=== PATIENT | male | born 1995 | race Caucasian/White ===

== ENCOUNTER 2017-05-03 21:37 | Inpatient (IN) | payer BC, OTHER ==
[2017-05-03 22:38] LABS: URINE APPEARANCE CLEAR; URINE BILIRUBIN NEGATIVE (NEGATIVE); URINE BLOOD 1+ (NEGATIVE); URINE COLOR COLORLESS; URINE GLUCOSE (UA) NEGATIVE (NEGATIVE); URINE KETONE NEGATIVE (NEGATIVE); URINE LEUK ESTERASE NEGATIVE (NEGATIVE); URINE NITRITE NEGATIVE (NEGATIVE); URINE PROTEIN NEGATIVE (NEGATIVE); URINE UROBILINOGEN NEGATIVE mg/dL (0.2-1.0)
[2017-05-03 22:41] LABS: BASO % 0.8 % (0-2.0); EOS % 0.2 % (0-4.5); HEMATOCRIT 47.4 % (35.4-49); HEMOGLOBIN 15.9 GM/dL (11.7-16.9); LYMPH % 19.4 % (8-40); MCH 27.6 pg (25.7-33.7); MCHC 33.6 g/dl (32.0-35.9); MEAN CELL VOLUME 82.1 fl (80-96); MEAN PLT VOLUME 7.6 fl (7.5-11.1); MONO % 7.5 % (3.8-10.2); NEUT % 72.1 % (42.8-82.8); PLATELET COUNT 306 K/MM3 (134-434); RBC 5.77 M/mm3 (4.00-5.60)
--- NOTE | 2017-05-03 22:58 | PDOC ---
History of Present Illness - General History Source: Patient, Family Exam Limitations: No Limitations <Joey Ospina - Last Filed: 05/04/17 00:28> - General History Source: Patient, Family Exam Limitations: No Limitations - History of Present Illness Initial Comments: 05/03/17 23:29 The patient is a 22 year old male, accompanied by family with a significant past medical history of PTSD, who presents to the emergency department with, confusion for approx. 5 days. The patient reports he hit himself in the head with a 25 lb dumbbell intentionally five days ago. The patient reports increased stressors and states he hit his head on purpose. He denies suicidal or homicidal ideation. The patient's family reports the patient has been behaving less attentive than usual and acting lethargic over the past week s/p dumbbell incident. He denies any recent fevers, chills, or dizziness. He denies any recent nausea, vomit, diarrhea or constipation. He denies any recent chest pain or shortness of breath. Allergies: NKA Past surgical history: None reported. Social History: Nonsmoker. Denies EtOH use and recreational drug use. Primary Care Physician: Dr. Tay Davis <Yossi Dodson - Last Filed: 05/04/17 00:32> - General Chief Complaint: Altered Mental Status Stated Complaint: ALTERED MENTAL STATUS Time Seen by Provider: 05/03/17 21:44 Past History - Past Medical History COPD: No - Suicide/Smoking/Psychosocial Hx Smoking History: Never smoked Have you smoked in the past 12 months: No Information on smoking cessation initiated: No Hx Alcohol Use: No Drug/Substance Use Hx: No Substance Use Type: None <Joey Ospina - Last Filed: 05/04/17 00:28> <Yossi Dodson - Last Filed: 05/04/17 00:32> - Past Medical History Allergies/Adverse Reactions: Allergies Allergy/AdvReac Type Severity Reaction Status Date / Time No Known Allergies Allergy Verified 05/03/17 22:29 Home Medications: Ambulatory Orders NK [No Known Home Medication] 05/03/17 Review of Systems - Review of Systems Comments:: 05/03/17 23:31 GENERAL/CONSTITUTIONAL: No fever or chills. No weakness. HEAD, EYES, EARS, NOSE AND THROAT: No change in vision. No ear pain or discharge. No sore throat. CARDIOVASCULAR: No chest pain or shortness of breath. RESPIRATORY: No cough, wheezing, or hemoptysis. GASTROINTESTINAL: No nausea, vomiting, diarrhea or constipation. GENITOURINARY: No dysuria, frequency, or change in urination. MUSCULOSKELETAL: No joint or muscle swelling or pain. No neck or back pain. SKIN: No rash NEUROLOGIC: No headache, vertigo, loss of consciousness, or change in strength/ sensation. ENDOCRINE: No increased thirst. No abnormal weight change. HEMATOLOGIC/LYMPHATIC: No anemia, easy bleeding, or history of blood clots. ALLERGIC/IMMUNOLOGIC: No hives or skin allergy. <Yossi Dodson - Last Filed: 05/04/17 00:32> *Physical Exam - Vital Signs Last Vital Signs Temp Pulse Resp BP Pulse Ox 98.7 F 101 H 21 126/75 99 05/03/17 22:30 05/03/17 22:30 05/03/17 22:30 05/03/17 22:30 05/03/17 22:30 <Joey Ospina - Last Filed: 05/04/17 00:28> - Vital Signs Last Vital Signs Temp Pulse Resp BP Pulse Ox 98.7 F 101 H 21 126/75 99 05/03/17 22:30 05/03/17 22:30 05/03/17 22:30 05/03/17 22:30 05/03/17 22:30 - Physical Exam Comments: 05/03/17 23:46 GENERAL: +Appears slow to answer questions. Alert and orientated x 3. HEAD: No signs of trauma EYES: PERRLA, EOMI, sclera anicteric, conjunctiva clear ENT: Auricles normal inspection, hearing grossly normal, nares patent, oropharynx clear without exudates. Moist mucosa NECK: Normal ROM, supple, no lymphadenopathy, JVD, or masses LUNGS: Breath sounds equal, clear to auscultation bilaterally. No wheezes, and no crackles HEART: Regular rate and rhythm, normal S1 and S2, no murmurs, rubs or gallops ABDOMEN: Soft, nontender, normoactive bowel sounds. No guarding, no rebound. No masses EXTREMITIES: Normal range of motion, no edema. No clubbing or cyanosis. No cords, erythema, or tenderness NEUROLOGICAL: Cranial nerves II through XII grossly intact. Normal speech, normal gait SKIN: Warm, Dry, normal turgor, no rashes or lesions noted. <Yossi Dodson - Last Filed: 05/04/17 00:32> Heart Score/ECG Review #1 ECG reviewed & interpreted by me at: 22:30 05/03/17 22:58 NSR 101, low voltage QRS, Q wave III, no std/martine, QTC 433 msec <Joey Ospina - Last Filed: 05/04/17 00:28> ED Treatment Course - LABORATORY CBC & Chemistry Diagram: 05/03/17 22:25 05/03/17 22:25 - ADDITIONAL ORDERS Additional order review: Laboratory Results 05/03/17 22:25 Urine Color Colorless Urine Appearance Clear Urine pH 7.0 Ur Specific [place] 1.004 Urine Protein Negative Urine Glucose (UA) Negative Urine Ketones Negative Urine Blood 1+ H Urine Nitrite Negative Urine Bilirubin Negative Urine Urobilinogen Negative Ur Leukocyte Esterase Negative Urine WBC (Auto) <1 Urine RBC (Auto) <1 05/03/17 22:25 RBC 5.77 H MCV 82.1 MCHC 33.6 RDW 13.0 MPV 7.6 Neutrophils % 72.1 Lymphocytes % 19.4 D Monocytes % 7.5 Eosinophils % 0.2 Basophils % 0.8 - RADIOLOGY Radiology Studies Ordered: Category Date Time Status HEAD CT WITHOUT CONTRAST [CT] Stat CT Scan 05/03/17 21:57 Ordered <Joey Ospina - Last Filed: 05/04/17 00:28> - LABORATORY CBC & Chemistry Diagram: 05/03/17 22:25 05/03/17 22:25 - ADDITIONAL ORDERS Additional order review: Laboratory Results 05/03/17 05/03/17 05/03/17 22:25 22:25 22:25 PT with INR 12.40 H INR 1.10 PTT (Actin FS) 31.6 Urine Color Colorless Urine Appearance Clear Urine pH 7.0 Ur Specific [place] 1.004 Urine Protein Negative Urine Glucose (UA) Negative Urine Ketones Negative Urine Blood 1+ H Urine Nitrite Negative Urine Bilirubin Negative Urine Urobilinogen Negative Ur Leukocyte Esterase Negative Urine WBC (Auto) <1 Urine RBC (Auto) <1 Opiates Screen Negative Methadone Screen Negative Barbiturate Screen Negative Phencyclidine Screen Negative Ur Amphetamines Screen Negative MDMA (Ecstasy) Screen Negative Benzodiazepines Screen Negative Cocaine Screen Negative U Marijuana (THC) Screen Negative 05/03/17 22:25 RBC 5.77 H MCV 82.1 MCHC 33.6 RDW 13.0 MPV 7.6 Neutrophils % 72.1 Lymphocytes % 19.4 D Monocytes % 7.5 Eosinophils % 0.2 Basophils % 0.8 - RADIOLOGY Radiograph Interpretation: 05/03/17 23:51 EXAM#: TYPE/EXAM: RESULT: [id number] CT/HEAD CT WITHOUT CONTRAST Exam: CT head without contrast. Indication: Head injury. Technique: Axial noncontrast head CT with coronal and sagittal reformations. Comparison: None available. Findings: There is no acute intracranial hemorrhage or focal extra-axial collection. There is no compelling evidence of acute transcortical infarction. The ventricles, sulci and cisterns are appropriate in size for age. There is no mass effect, midline shift or hydrocephalus. The calvarium is intact. The visualized paranasal sinuses and mastoid air cells are clear. Impression: No acute intracranial hemorrhage or calvarial fracture. No mass effects or hydrocephalus. Reported By: Callum Marcus DO <Yossi Dodson - Last Filed: 05/04/17 00:32> Medical Decision Making - Medical Decision Making 05/03/17 22:54 A portion of this note was documented by scribe services under my direction. I have reviewed the details of the note, within reason, and agree with the documentation with the following case summary and management plan written by me. Patient treated in the ED. Nursing notes are reviewed and incorporated into the medical decision-making. Vital signs reviewed. Peripheral IV access obtained by the nurse, laboratory studies are drawn and sent, reviewed and interpreted by myself. Vital Signs Temp Pulse Resp BP Pulse Ox 98.7 F 101 H 21 126/75 99 05/03/17 22:30 05/03/17 22:30 05/03/17 22:30 05/03/17 22:30 05/03/17 22:30 22-year-old male patient with past medical history of PTSD brought in by family presents with "fogginess". 5 days ago, the patient reported that he had hit his head with a 25 pound well on purpose. The patient reports he's been undergoing stress and had purposely done this. However, he denies suicidal or homicidal ideation. The patient is not currently on antidepressants and does not see a psychologist. Since then, the family noted that the patient has been increasingly "spaced out" and "foggy". He had the patient has been much more lethargic and not like himself. I suspect the patient likely has concussion. However, we'll need to rule out intracranial hemorrhage. We'll obtain a head CT. There is no evidence of lacerations on the patient's scalp. The patient likely has a moderate severity of concussion. We'll send a urine toxicological screen about other causes for patient's condition. At this time, patient is not acutely suicidal but would likely benefit from a psychiatric consultation. We'll obtain labs and ultimately admit the patient to the hospital for evaluation by neurology and psychiatry. 05/04/17 00:28 CBC, BMP 05/03/17 22:25 05/03/17 22:25 CMP Sodium 139 mmol/L (136-145) 05/03/17 22:25 Potassium 3.8 mmol/L (3.5-5.1) 05/03/17 22:25 Chloride 101 mmol/L (98-107) 05/03/17 22:25 Carbon Dioxide 28 mmol/L (21-32) 05/03/17 22:25 Anion Gap 10 (8-16) 05/03/17 22:25 BUN 9 mg/dL (7-18) 05/03/17 22:25 Creatinine 0.9 mg/dL (0.7-1.3) 05/03/17 22:25 Creat Clearance w eGFR > 60 (>60) 05/03/17 22:25 Random Glucose 111 mg/dL (74-106) H 05/03/17 22:25 Calcium 9.2 mg/dL (8.5-10.1) 05/03/17 22:25 Total Bilirubin 0.4 mg/dL (0.2-1.0) 05/03/17 22:25 AST 18 U/L (15-37) 05/03/17 22:25 ALT 21 U/L (12-78) 05/03/17 22:25 Alkaline Phosphatase 75 U/L (45-117) 05/03/17 22:25 Total Protein 7.4 g/dl (6.4-8.2) 05/03/17 22:25 Albumin 4.1 g/dl (3.4-5.0) 05/03/17 22:25 Urine Test Results Urine Color Colorless 05/03/17: Urine Appearance Clear 05/03/17: Urine pH 7.0 (5.0-8.0) 05/03/17 22:25 Ur Specific [place] 1.004 (1.001-1.035) 05/03/17 22:25 Urine Protein Negative (NEGATIVE) 05/03/17:25 Urine Glucose (UA) Negative (NEGATIVE) 05/03/17: Urine Ketones Negative (NEGATIVE) 05/03/17 22: Urine Blood 1+ (NEGATIVE) H 05/03/17: Urine Nitrite Negative (NEGATIVE) 05/03/17: Urine Bilirubin Negative (NEGATIVE) 05/03/17: Ur Leukocyte Esterase Negative (NEGATIVE) 05/03/17: Utox negative. Head CT negative. Case discussed with Dr. Davis's POPPY Fuentes who accepts the patient to med/surg observation under the behalf of DR. Davis. Case discussed in detail with admitting physician including history, physical exam and ancillary studies. Admitting physician has assumed care for the patient, will follow all pending diagnostics and will complete the evaluation and treatment. <Joey Ospina - Last Filed: 05/04/17 00:28> *DC/Admit/Observation/Transfer - Discharge Dispostion Admit: Yes <Joey Ospina - Last Filed: 05/04/17 00:28> - Attestations Scribe Attestion: 05/03/17 23:32 Documentation prepared by Yossi Dodson, acting as medical biller coder for Joey Ospina MD. <Yossi Dodson - Last Filed: 05/04/17 00:32> Diagnosis at time of Disposition: Concussion Qualifiers: Encounter type: initial encounter Loss of consciousness presence/duration: without LOC Qualified Code(s): S06.0X0A - Concussion without loss of consciousness, initial encounter - Discharge Dispostion Condition at time of disposition: Stable - Referrals Referrals: Tay Davis MD [Primary Care Provider] - - Patient Instructions - Post Discharge Activity
[2017-05-03 22:59] LABS: COCAINE, UR NEGATIVE ng/ml (CUTOFF=300); METHADONE, UR NEGATIVE ng/ml (CUTOFF=300); OPIATES, URI NEGATIVE ng/ml (CUTOFF=300); PHENCYCLIDINE,URINE NEGATIVE ng/ml (CUTOFF=25); URINE AMPHETAMINES NEGATIVE ng/ml (CUTOFF=500); URINE BARBITURATES NEGATIVE ng/ml (CUTOFF=200); URINE BENZODIAZEPINES NEGATIVE ng/ml (CUTOFF=200)
[2017-05-03 23:18] LABS: INR 1.1 (0.82-1.09); PROTHROMBIN TIME (PATIENT) 12.4 SEC (9.98-11.88)
[2017-05-03 23:21] LABS: ACTIVATED PTT 31.6 SECONDS (26.9-34.4)
[2017-05-03 23:36] LABS: ALBUMIN 4.1 g/dl (3.4-5.0); ANION GAP 10 (8-16); BLOOD UREA NITROGEN 9 mg/dL (7-18); CALCIUM 9.2 mg/dL (8.5-10.1); CHLORIDE 101 mmol/L (98-107); CO2 28 mmol/L (21-32); CREATININE 0.9 mg/dL (0.7-1.3); GLUCOSE,RANDOM 111 mg/dL (74-106); POTASSIUM 3.8 mmol/L (3.5-5.1); SGOT/AST 18 U/L (15-37); SGPT/ALT 21 U/L (12-78); SODIUM 139 mmol/L (136-145)
[2017-05-03 23:37] LABS: ALK PHOS 75 U/L (45-117); BILIRUBIN,TOTAL 0.4 mg/dL (0.2-1.0); TOT PROT 7.4 g/dl (6.4-8.2)
[2017-05-04 02:56] VITALS: BMI 26.0
--- NOTE | 2017-05-04 10:02 | EKG ---
Test Reason : Blood Pressure : / mmHG Vent. Rate : 101 BPM Atrial Rate : 101 BPM P-R Int : 116 ms QRS Dur : 082 ms QT Int : 334 ms P-R-T Axes : 070 -08 031 degrees QTc Int : 433 ms SINUS TACHYCARDIA WITH OCCASIONAL PREMATURE VENTRICULAR COMPLEXES LOW VOLTAGE QRS INFERIOR INFARCT , AGE UNDETERMINED ABNORMAL ECG NO PREVIOUS ECGS AVAILABLE Confirmed by GABRIELA BATES MD ([id number]) on 05/04/2017 10:01:58 AM Referred By: Confirmed By:GABRIELA BATES MD
--- NOTE | 2017-05-04 11:05 | HP ---
Admitting History and Physical - Primary Care Physician PCP: Tay Davis - Admission Chief Complaint: Confusion. Concussion History of Present Illness: The patient is a 22 year old male, accompanied by family with a significant past medical history of PTSD, who presents to the emergency department with, confusion for approx. 5 days. The patient reports he hit himself in the head with a 25 lb dumbbell intentionally five days ago. The patient reports increased stressors and states he hit his head on purpose. He denies suicidal or homicidal ideation. The patient's family reports the patient has been behaving less attentive than usual and acting lethargic over the past week s/p dumbbell incident. He denies any recent fevers, chills, or dizziness. He denies any recent nausea, vomit, diarrhea or constipation. He denies any recent chest pain or shortness of breath. History Source: Patient, Medical Record Limitations to Obtaining History: No Limitations - Past Medical History Psych: Yes: Anxiety (Has seen counselor and Psychiatry in the past, doesn't remember the name. tried medication for 1 month and never followed up with Psych.) - Smoking History Smoking history: Never smoked Have you smoked in the past 12 months: No - Alcohol/Substance Use Hx Alcohol Use: Yes (occasionally) History of Substance Use: reports: None - Social History Usual Living Arrangement: Yes: With Parent ADL: Independent Occupation: worked at [employer] in the past at [employer], doesn't work for now. History of Recent Travel: No Other Social History: Went to [employer] for few semesters for [employer]. Finds himself struggling in school and trouble focusing. Home Medications - Allergies Allergies/Adverse Reactions: Allergies Allergy/AdvReac Type Severity Reaction Status Date / Time No Known Allergies Allergy Verified 05/03/17 22:29 - Home Medications Home Medications: Ambulatory Orders NK [No Known Home Medication] 05/03/17 Review of Systems - Review of Systems Constitutional: reports: No Symptoms Eyes: reports: No Symptoms HENT: reports: No Symptoms Neck: reports: No Symptoms Cardiovascular: reports: No Symptoms Respiratory: reports: No Symptoms Gastrointestinal: reports: No Symptoms Genitourinary: reports: No Symptoms Breasts: reports: No Symptoms Reported Musculoskeletal: reports: No Symptoms Integumentary: reports: No Symptoms Neurological: reports: Confusion, Headache Endocrine: reports: No Symptoms Hematology/Lymphatic: reports: No Symptoms Psychiatric: reports: No Symptoms Physical Examination Vital Signs: Vital Signs Temperature 98.2 F 05/04/17 09:26 Pulse Rate 104 H 05/04/17 09:26 Respiratory Rate 18 05/04/17 09:26 Blood Pressure 132/65 05/04/17 09:26 O2 Sat by Pulse Oximetry (%) 100 05/04/17 00:48 Constitutional: Yes: Well Nourished, No Distress, Calm Cardiovascular: Yes: Regular Rate and Rhythm Respiratory: Yes: Regular Gastrointestinal: Yes: Normal Bowel Sounds, Soft Musculoskeletal: Yes: WNL Extremities: Yes: WNL Edema: No Peripheral Pulses WNL: Yes Neurological: Yes: Alert, Oriented Psychiatric: Yes: Alert, Oriented Labs: CBC, BMP 05/03/17 22:25 05/03/17 22:25 Problem List - Problems (1) Self-harm Assessment/Plan: -Psych consult -states he doesn't want to hurt himself. He was upset and overwhelmed when he hit himself with the 25 lb dumbbell. Upon question what had upset him, he is unable to explain the cause and states 'just everything'. Code(s): [id number] - (2) Anxiety Assessment/Plan: -has seen Counselor and psychiatry in the past- mother adn pt do not know the names. He was also started on medication for a month which he stopped taking because he couldn't f/u with psychiatry due to mismatch schedule of mothers working hours. States he has been that way ever since his fathers passing when he was 14 years old. He has very few friends, he likes to stay home most of the time and play video games. He is in touch with his friends through social media and [employer] console. During the conversation, the mother and the Aunt were excused out of the room. -Psych consult. Code(s): F41.9 - ANXIETY DISORDER, UNSPECIFIED Assessment/Plan see problem list Psychiatric Findings - Problem List ([place] 1, 2,3) (1) Self-harm Current Visit: Yes Status: Acute (2) Anxiety Current Visit: Yes Status: Acute Mental Status Exam - Exam Patient Appearance: Well Groomed Mood: Euthymic Affect: Nervous Behavior: Appropiate on Interview Speech: Clear (stuttering blocking) Thought Process: Thought Blocking Hallucination: None Delusion Description: Not Present Cognitive: Orientated x 3 Memory: Good Insight: Fair Judgement: Fair
--- NOTE | 2017-05-04 14:05 | CON.PSY ---
Psychiatry Consult Chief Complaint: 22 year old student admitted to r/o concussion , apparantly hit himself on the head with a Dumbbell. Has been seeing a Psychologist for PTSD. Symptoms: reports: Depressed Mood, Self destructive thoughts - Previous Psychiatric Treatment Outpatient: Less than 6 mos ago Inpatient: None - Previous Substance Abuse Treatment Outpatient: None Inpatient: None - Reason for Previous Treatment Reason for Previous Treatment: Past Traumatic Stress - Allergies Allergies: Allergies Allergy/AdvReac Type Severity Reaction Status Date / Time No Known Allergies Allergy Verified 05/03/17 22:29 - Current Living Status Usual Living Arrangement: With Parent - Current Mental Status Evaluation Appearance: Disheveled Attitude: Guarded - Affect Affect: Constrictive Appropriateness: Not Appropriate - Mood Mood: Depressed - Speech/Language Expressive: Delayed - Psychomotor Activity Psychomotor Activity: Slowed - Thought Process Thought Process: Circumstantial - Thought Content Hallucinations: Absent Delusions: Absent - Cognition Attention: Alert Orientation: Time Memory, Immediate Recall: Intact Memory, Short Term: 2/3 Memory, Remote with Promptin/3 - Concentration Serial Sevens Intact: No Simple Calculations Intact: No - Abstraction Proverb Interpretation: Intact Judgement: Moderately Impaired - Insight Insight: Impaired - Impulse Control Impulse Control: Moderately Impaired - Suicidal Ideation Suicidal Ideation: No - Homicidal Ideation Homicidal Ideation: No Assessment/Plan 1) Patient needs 1:1 2) May need In Patient Psych Admission. 3) will Follow.
--- NOTE | 2017-05-04 19:15 | CONSULT ---
Consult - text type - Consultation Consultation Note: NEUROLOGY CONSULTATION is greatly appreciated: Events reviewed and discussed with extended family. This 22 yo RH man with no sig. past medical history has been intermittently depressed since the of his father in 2009. Finished high school but struggled with college "off and on." Given Mirtazepine in the past (Dr. Herman) "for anxiety." Worsening in recent months. Unable to hold a job. Increasingly isolated. Mother notes him as "paranoid" over the last few weeks, staring out of his bedroom window. Few days ago, struck himself in the head with a barbell trying to "end it all." CT of head (reviewed): Normal. No heme or traumatic injury. CAM: No external head trauma. NEURO: Awake, alert. Extremely bradyphrenic and slow to respond. Ox3 No frontal release phenomena CN II-XII: normal Motor: Bradykinetic. No drift or tremor. Normal strength, tone, bulk and reflexes. Toes downgoing. Coord: No FTN dystaxia Sensory: Normal. Romberg neg. Gait: sl shuffle. IMP: Normal neurological exam. Suspect severe depression and suicidal gesture. Suggest: Discussed with Dr. Hardy Agree with 1:1 observation Agree with transfer to inpatient psyche ([facility] or [facility]). Check B12, TSH. Thank you very much, Yovani Rosenthal MD
[2017-05-04] MEDS: LORazepam 1 MG TABLET PO PRN (19:57)
[2017-05-04] MEDS ORDERED: LORazepam 1 MG TABLET PO ONE (20:48)
[2017-05-05] MEDS: LORazepam 1 MG TABLET PO PRN ×2 (08:35→17:41)
[2017-05-05] MEDS ORDERED: LORazepam 1 MG TABLET PO STA (11:57)
--- NOTE | 2017-05-05 12:49 | DS ---
Physical Examination Vital Signs: Vital Signs Temperature 98.2 F 05/04/17 22:29 Pulse Rate 101 H 05/04/17 22:29 Respiratory Rate 20 05/04/17 22:29 Blood Pressure 128/64 05/04/17 22:29 O2 Sat by Pulse Oximetry (%) 95 05/04/17 22:35 Findings/Remarks: AWAKE ALERT FAMILY BEDSIDE Constitutional: Yes: Mild Distress Eyes: Yes: WNL HENT: Yes: WNL Neck: Yes: WNL Cardiovascular: Yes: WNL Respiratory: Yes: WNL Gastrointestinal: Yes: WNL Renal/: Yes: WNL Musculoskeletal: Yes: WNL Extremities: Yes: WNL Edema: No Peripheral Pulses WNL: Yes Integumentary: Yes: WNL Wound/Incision: Yes: Clean/Dry Neurological: Yes: WNL ...Motor Strength: WNL Psychiatric: Yes: Other Labs: CBC, BMP 05/03/17 22:25 05/03/17 22:25 Discharge Summary Reason For Visit: CONCUSSION Current Active Problems Anxiety (Acute) Concussion (Acute) Self-harm (Acute) Procedures: Principal: CT HEAD Hospital Course: ADMITTED FOR SELF INFLICTED HEAD TRAUMA, TRANSFERRING PER PSYCHIATRY TO [facility] FOR TREATMENT Condition: Stable - Instructions Diet, Activity, Other Instructions: TOLERATED PSYCHIATRY EVAL Referrals: Tay Davis MD [Primary Care Provider] - Disposition: TRANSFER ACUTE CARE/OTHER HOSP - Home Medications Comprehensive Discharge Medication List: Ambulatory Orders NK [No Known Home Medication] 05/03/17
--- NOTE | 2017-05-05 14:01 | PN ---
Progress Note (short form) - Note Progress Note: Psych follow up: Patient still vague about Suicidal plans> family reports that he ahs been depressed and suicidal since the of his father> patient also Vague about ? traumatic event. Patient admits to hitting himself in the head with a Dumb [place] to hurt himself. PLan: Transfer patient to In Patient psych for further evaluation and tratment. Patient cleared by Neurology.
[2017-05-05 17:04] VITALS: BP 133/75; PULSE 104; TEMP 98.8
== END 2017-05-05 17:50 | disposition short-term general hospital (02) | DRG 89 ==
LOC: JER 21:37 → JERBED 05-04 00:30 → UNDOADMOB 05-04 00:48 → JERBED 05-04 00:48 → J7W 05-04 02:03 → OBSVTOIN 05-04 16:06 → J7W 05-04 21:03
PROVIDERS: ADMIT Family Medicine; ATTEND Family Medicine
DX: S06.0X9A Concussion with loss of consciousness of unspecified duration, initial encounter (principal); R45.851 Suicidal ideations; F43.10 Post-traumatic stress disorder, unspecified; X58.XXXA Exposure to other specified factors, initial encounter; W20.8XXA Other cause of strike by thrown, projected or falling object, initial encounter; Y93.B3 Activity, free weights; Y92.018 Other place in single-family (private) house as the place of occurrence of the external cause; Y99.8 Other external cause status; F32.9 Major depressive disorder, single episode, unspecified
CPT/HCPCS: 36415; 70450-TC; 80053; 80307; 81003; 81015; 85025; 85610; 85730; 93005; 93010; 99282-25; G0378

== ENCOUNTER 2018-09-06 22:44 | Emergency (ER) | payer BC, OTHER ==
[2018-09-06 23:01] VITALS: TEMP 98.4; BMI 28.7
[2018-09-06] MEDS ORDERED: hydrOXYzine PAMOATE 50 MG CAPSULE (FP) PO ONE (23:16)
[2018-09-07 00:19] VITALS: BP 138/89; PULSE 108
--- NOTE | 2018-09-07 00:44 | PDOC ---
History of Present Illness - General History Source: Patient, Parent(s) Exam Limitations: No Limitations <Bernie Harper - Last Filed: 09/07/18 00:50> <Sudha Lucero - Last Filed: 09/07/18 04:27> - General Chief Complaint: Chest Pain Stated Complaint: CHEST PAIN Time Seen by Provider: 09/06/18 23:01 Past History - Past Medical History COPD: No Hypercholesterolemia: Yes - Suicide/Smoking/Psychosocial Hx Smoking History: Never smoked Have you smoked in the past 12 months: No Hx Alcohol Use: No Drug/Substance Use Hx: No Substance Use Type: None Hx Substance Use Treatment: No <Bernie Harper - Last Filed: 09/07/18 00:50> <Sudha Lucero - Last Filed: 09/07/18 04:27> - Past Medical History Allergies/Adverse Reactions: Allergies Allergy/AdvReac Type Severity Reaction Status Date / Time No Known Allergies Allergy Verified 09/06/18 23:01 Home Medications: Ambulatory Orders LORazepam [Ativan] 1 mg PO Q8H PRN tablet MDD 3 05/05/17 *Physical Exam - Vital Signs Last Vital Signs Temp Pulse Resp BP Pulse Ox 98.4 F 108 H 20 138/89 97 09/06/18 22:59 09/07/18 00:18 09/07/18 00:18 09/07/18 00:18 09/07/18 00:18 - Physical Exam General Appearance: Yes: Other (seems a bit anxious, talking fast) Respiratory/Chest: positive: Lungs Clear, Normal Breath Sounds. negative: Respiratory Distress Cardiovascular: positive: Regular Rhythm, Tachycardia. negative: Murmur Gastrointestinal/Abdominal: positive: Normal Bowel Sounds, Soft. negative: Tender, Distended, Guarding, Rebound Integumentary: positive: Normal Color Neurologic: positive: Fully Oriented, Alert <Bernie aHrper - Last Filed: 09/07/18 00:50> - Vital Signs Last Vital Signs Temp Pulse Resp BP Pulse Ox 98.4 F 108 H 20 138/89 97 09/06/18 22:59 09/07/18 00:18 09/07/18 00:18 09/07/18 00:18 09/07/18 00:18 <Sudha Lucero - Last Filed: 09/07/18 04:27> ED Treatment Course - Medications Given in the ED: ED Medications Discontinued Medications Generic Name Dose Route Start Last Admin Trade Name Freq PRN Reason Stop Dose Admin Hydroxyzine Pamoate 50 mg 09/06/18 23:16 09/06/18 23:45 Vistaril - PO 09/06/18 23:17 50 mg ONCE ONE Administration <Bernie Harper - Last Filed: 09/07/18 00:50> - Medications Given in the ED: ED Medications Discontinued Medications Generic Name Dose Route Start Last Admin Trade Name Freq PRN Reason Stop Dose Admin Hydroxyzine Pamoate 50 mg 09/06/18 23:16 09/06/18 23:45 Vistaril - PO 09/06/18 23:17 50 mg ONCE ONE Administration <Sudha Lucero - Last Filed: 09/07/18 04:27> Medical Decision Making - Medical Decision Making 23 y/o M with psych disorder, possible PTSD (never formally diagnosed with anything per mother, but is seeing psychiatrist and currently taking Ziprasidone ) presents with feeling anxious around 9 PM while thinking about things in life. States having chest tightness, sob, palpitations and sweating. Mentions has had anxiety like symptoms in the past. Denies fever, URI sxs, abd pain, n/v/ d, weakness of extremities, S/H ideation. Denies drug use. States rarely drinks alcohol and did not have today EKG: Sinus tach at 119, normal QT interval Likely anxiety Given dose of Hydroxyzine and states he is feeling much better Patient already has psychiatrist whom he follows up with 09/07/18 00:50 <Bernie Harper - Last Filed: 09/07/18 00:50> - Medical Decision Making The patient was seen and evaluated in conjunction with midlevel provider under my direct supervision, ancillary studies were reviewed. I agree with the plan as outlined POPPY Harper. HPI, workup/dispo as outlined. VS reviewed, +tachy and anxious EKG sinus tachycardia at 119 bpm, no interval or ST /t wave segment derangement. given anxiolytic, improved, VS improved, downtrending tachycardia no systemic findings or complaints has pcp and psychiatrist for reliable and close followup. 09/07/18 04:26 <Sudha Lucero - Last Filed: 09/07/18 04:27> *DC/Admit/Observation/Transfer - Discharge Dispostion Decision to Admit order: No <Bernie Harper - Last Filed: 09/07/18 00:50> <Sudha Lucero Mihaelagurpreet - Last Filed: 09/07/18 04:27> Diagnosis at time of Disposition: Anxiety - Discharge Dispostion Disposition: HOME Condition at time of disposition: Improved - Referrals Referrals: Tay Davis MD [Primary Care Provider] - 2 Days - Patient Instructions Printed Discharge Instructions: DI for Anxiety -- Adult Additional Instructions: Thank you for choosing [facility]. It was a pleasure taking care of you. You were given Hydroxyzine here for your anxiety Please follow-up with psychiatrist in 2 days for further evaluation of your symptoms Return to the Emergency Department if your symptoms worsen or persist or have other concerning symptoms. - Post Discharge Activity
--- NOTE | 2018-09-07 08:47 | EKG ---
Test Reason : Blood Pressure : / mmHG Vent. Rate : 119 BPM Atrial Rate : 119 BPM P-R Int : 122 ms QRS Dur : 084 ms QT Int : 314 ms P-R-T Axes : 046 046 004 degrees QTc Int : 441 ms SINUS TACHYCARDIA WITH OCCASIONAL and consecutive PREMATURE VENTRICULAR COMPLEXES ABNORMAL ECG WHEN COMPARED WITH ECG OF 03-MAY-2017 22:28, CRITERIA FOR INFERIOR INFARCT ARE NO LONGER PRESENT Confirmed by ANANTH SOLIS, DEONTE ([id number]) on 09/07/2018 8:46:57 AM Referred By: Confirmed By:DEONTE WADSWORTH MD
--- NOTE | 2018-09-10 12:49 | EKG ---
Test Reason : Blood Pressure : / mmHG Vent. Rate : 116 BPM Atrial Rate : 116 BPM P-R Int : 124 ms QRS Dur : 086 ms QT Int : 312 ms P-R-T Axes : 055 054 008 degrees QTc Int : 433 ms SINUS TACHYCARDIA WITH OCCASIONAL PREMATURE VENTRICULAR COMPLEXES OTHERWISE NORMAL ECG WHEN COMPARED WITH ECG OF 03-MAY-2017 22:28, CRITERIA FOR INFERIOR INFARCT ARE NO LONGER PRESENT Confirmed by Robert Becker MD ([id number]) on 09/10/2018 12:48:58 PM Referred By: Confirmed By:Robert Becker MD
== END 2018-09-07 01:05 | disposition home or self-care (01) ==
LOC: JER 22:44
DX: F41.9 Anxiety disorder, unspecified (principal)
CPT/HCPCS: 93005; 93010; 99282-25

== ENCOUNTER 2018-10-09 20:02 | Emergency (ER) | payer BC, OTHER ==
--- NOTE | 2018-10-09 20:09 | PDOC ---
Rapid Medical Evaluation Time Seen by Provider: 10/09/18 20:05 Medical Evaluation: Allergies Allergy/AdvReac Type Severity Reaction Status Date / Time No Known Allergies Allergy Verified 09/06/18 23:01 10/09/18 20:06 HPI: Eye sensitivity PE: No gross deficits ORDERS: Nothing Discharge Disposition - Diagnosis Eyes sensitive to light - Referrals - Patient Instructions - Post Discharge Activity
[2018-10-09 20:13] VITALS: BP 134/77; PULSE 100; TEMP 98; BMI 28.7
[2018-10-09] MEDS ORDERED: FLUORESCEIN NA 1 EA STRIP OU ONE (20:53)
[2018-10-09] MEDS ORDERED: TETRACAINE 0.5% HCL 0.6ML DROPPER.BOTTLE OU ONE (20:53)
[2018-10-09] MEDS ORDERED: FLUORESCEIN NA 1 EA STRIP ONE (20:54)
[2018-10-09] MEDS ORDERED: TETRACAINE 0.5% OPHTH SOLN 2 ML BOTTLE ONE (20:54)
--- NOTE | 2018-10-09 21:01 | PDOC ---
History of Present Illness - General Chief Complaint: Eye Problem Stated Complaint: SENSITIVE EYES Time Seen by Provider: 10/09/18 20:05 History Source: Patient Exam Limitations: No Limitations - History of Present Illness Initial Comments: 10/09/18 20:54 HISTORY OF PRESENT ILLNESS: 23-year-old male past medical history of anxiety and depression presents emergency department for evaluation of left eye pain and photosensitivity. Patient reports he plays multiple videogames at nights intricately rubs his eyes will playing the game. Patient woke up this morning with increased pain to the external surface of his left eye with photosensitivity. He denies any trauma. Patient does not wear contact lenses or corrective lenses. He denies blurry vision. No recent travel or sick contacts. PAST MEDICAL HISTORY: Denies past medical history SURGICAL HISTORY: Denies ALLERGIES: No known drug allergies REVIEW OF SYSTEMS General/Constitutional: Denies fever or chills. Denies weakness, weight change. HEENT: see HPI Cardiovascular: Denies chest pain or shortness of breath. Respiratory: Denies cough, wheezing, or hemoptysis. Gastrointestinal: Denies nausea, vomiting, diarrhea or constipation. Denies rectal bleeding. Genitourinary: Denies dysuria, frequency, or change in urination. Musculoskeletal: Denies joint or muscle swelling or pain. Denies neck or back pain. Skin and breasts: Denies rash or easy bruising. Neurologic: Denies headache, vertigo, loss of consciousness, or loss of sensation. Psychiatric: Denies depression or anxiety. Endocrine: Denies increased thirst. Denies abnormal weight change. Hematologic/Lymphatic: Denies anemia, easy bleeding, or history of blood clots. Allergic/Immunologic: Denies hives or skin allergy. Denies latex allergy. PHYSICAL EXAM General Appearance: Well-appearing, appropriately dressed. No apparent distress , no intoxication. HEENT: EOMI, PERRLA, normal ENT inspection, normal voice, TMs normal, pharynx normal. No conjunctival pallor. No photophobia, scleral icterus. Red reflex is within normal limits. Neck: Supple. Trachea midline. No tenderness, rigidity, carotid bruit, stridor , lymphadenopathy, or thyromegaly. Respiratory/Chest: Lungs CTAB. No shortness of breath, chest tenderness, respiratory distress, accessory muscle use. No crackles, rales, rhonchi, stridor , wheezing, dullness Cardiovascular: RRR. S1, S2. No JVD, murmur, bradycardia, tachycardia. Integumentary: Appropriate color, dry, warm. No cyanosis, erythema, jaundice or rash Neurologic: mobile game engineer II-XII intact. Fully oriented, alert. Appropriate mood/affect. Motor strength 5/5. No appreciable EOM palsy, facial droop or sensory deficit. 10/09/18 21:06 Past History - Past Medical History Allergies/Adverse Reactions: Allergies Allergy/AdvReac Type Severity Reaction Status Date / Time No Known Allergies Allergy Verified 10/09/18 20:11 Home Medications: Ambulatory Orders LORazepam [Ativan] 1 mg PO Q8H PRN tablet MDD 3 05/05/17 Erythromycin 0.5% Eye Ointment [Erythromycin 0.5% Eye Ointment -] 1 applic OS TID #1 tube 10/09/18 COPD: No Hypercholesterolemia: Yes - Suicide/Smoking/Psychosocial Hx Smoking History: Unknown if ever smoked Have you smoked in the past 12 months: No Information on smoking cessation initiated: No Hx Alcohol Use: No Drug/Substance Use Hx: No Substance Use Type: None Hx Substance Use Treatment: No *Physical Exam - Vital Signs Last Vital Signs Temp Pulse Resp BP Pulse Ox 98.0 F 100 H 16 134/77 100 10/09/18 20:09 10/09/18 20:09 10/09/18 20:09 10/09/18 20:09 10/09/18 20:09 Medical Decision Making - Medical Decision Making 10/09/18 21:03 A/P: 23-year-old male with left eye irritation and photosensitivity for 1 day EYE EXAMINATION: Visual acuity: 20/20 in the left eye, 20/20 in the right eye, near, uncorrected The lid and lashes are normal. Extraocular movements are intact. The conjunctiva is clear without erythema, injection, or discharge The corneal surface is normal post tetracaine and fluorescein. There is a corneal abrasion at the 6 o'clock position of the iris. No foreign bodies present. The pupils are equal, round and reactive to light. The fundus shows normal vessels and normal discs. Physical exam is consistent with a corneal abrasion. I will give the patient erythromycin eye ointment once here in the discharged with prescription and ophthalmology follow-up 10/09/18 21:05 *DC/Admit/Observation/Transfer Diagnosis at time of Disposition: Corneal abrasion, left Qualifiers: Encounter type: initial encounter Qualified Code(s): S05.02XA - Injury of conjunctiva and corneal abrasion without foreign body, left eye, initial encounter - Discharge Dispostion Disposition: HOME Condition at time of disposition: Fair Decision to Admit order: No - Prescriptions Prescriptions: Erythromycin 0.5% Eye Ointment [Erythromycin 0.5% Eye Ointment -] 1 applic OS TID #1 tube - Referrals Referrals: Tay Davis MD [Primary Care Provider] - Meliton Mulligan MD [Staff Physician] - - Patient Instructions Additional Instructions: Rest, avoid rubbing eyes Wash hands, use eye drops as directed, wash hands after use May use eye lubricating drops as often as needed erythromycin ointment, one thin film 3 times a day for 5 days Tylenol or ibuprofen for pain relief Avoid contact with others until redness and discharge is gone from eyes. Followup with ophthalmology in one to 2 days for thorough exam Return to emergency department for worsened pain, swelling, vision problems. - Post Discharge Activity
[2018-10-09] MEDS ORDERED: ERYTHROMYCIN 0.5% OPHTHALMIC OINTMENT 3.5 GM TUBE OS ONE (21:03)
[2018-10-09] MEDS ORDERED: ERYTHROMYCIN 0.5% OPHTHALMIC OINTMENT 3.5 GM TUBE ONE (21:07)
== END 2018-10-09 21:15 | disposition home or self-care (01) ==
LOC: JER 20:02
DX: S05.02XA Injury of conjunctiva and corneal abrasion without foreign body, left eye, initial encounter (principal); E78.00 Pure hypercholesterolemia, unspecified; F41.8 Other specified anxiety disorders; Y93.9 Activity, unspecified; Y92.9 Unspecified place or not applicable
CPT/HCPCS: 99281-25

== ENCOUNTER 2023-06-30 23:23 | Emergency (ER) | payer OTHER ==
[2023-06-30 23:30] VITALS: BP 145/89; PULSE 118; RESP 20; TEMP 98.2; BMI 35.6
[2023-07-01 01:27] LABS: BASO % 0.6 % (0-2.0); EOS % 0.7 % (0-4.5); HEMATOCRIT 48.7 % (35.4-49); HEMOGLOBIN 16.4 GM/dL (11.7-16.9); MCH 26.9 pg (25.7-33.7); MCHC 33.7 g/dl (32.0-35.9); MEAN PLT VOLUME 7.6 fl (7.5-11.1); MONO % 6.5 % (3.8-10.2); NEUT % 66.2 % (42.8-82.8); PLATELET COUNT 350 10^3/uL (134-434); RBC 6.09 M/mm3 (4.00-5.60); RDW 13.5 % (11.9-15.9); WHITE BLOOD COUNT 11.1 K/mm3 (4.0-10.0)
[2023-07-01 01:33] LABS: INR 1.08 (0.83-1.09); PROTHROMBIN TIME (PATIENT) 12.5 SEC (9.7-13.0)
[2023-07-01 01:36] LABS: ACTIVATED PTT 35.1 SECONDS (25.2-36.5)
[2023-07-01 01:48] LABS: POTASSIUM 3.9 mmol/L (3.5-5.1)
[2023-07-01 01:49] LABS: ALBUMIN 3.9 g/dl (3.4-5.0); BLOOD UREA NITROGEN 16.8 mg/dL (7-18)
[2023-07-01 01:54] LABS: CREATININE 1.1 mg/dL (0.55-1.3)
[2023-07-01 01:56] LABS: BILIRUBIN,TOTAL 0.4 mg/dL (0.2-1); TOT PROT 7.1 g/dl (6.4-8.2)
[2023-07-01 02:45] LABS: N-TERMINAL BNP 466.1 pg/ml (5-125)
== END 2023-07-01 03:23 | disposition left against medical advice (07) ==
LOC: JER 23:23
DX: R07.89 Other chest pain (principal); I50.20 Unspecified systolic (congestive) heart failure; Z20.822 Contact with and (suspected) exposure to COVID-19
CPT/HCPCS: 0241U-QW; 36415; 71045-TC-FY; 80053; 83880; 84443; 84484; 85025; 85379; 85610; 85730; 93005; 93010; 99285-25